=== PATIENT | female | born 1960 | race Caucasian/White ===

== ENCOUNTER → 2022-10-24 | Outpatient (CLI) | payer BC ==
--- NOTE | 2022-10-24 10:23 | CTL ---
EXAMINATION TYPE: CT Low Dose Lung DATE OF EXAM ORDERED: 10/24/2022 HISTORY: . Lung cancer screening CT DLP: 2.[address] CTDI: 74.40 mGy Automated exposure control for dose reduction was used. SCREENING VISIT: COMPARISON: TECHNIQUE: Low dose computed tomography scan was performed through the chest at 1 mm thick sections a nd reconstructed images in multiple planes at 1 mm and [address] DIAGNOSTIC QUALITY: Satisfactory FINDINGS: Biapical pleural-based thickening. There is a 3 mm nodular density in the right lung apex axial image 26. There is a subpleural 3 mm nodule axial image 47. There is mild emphysematous changes with subsegmental areas of consolidation more typical of atelecta sis. No diagnostic evidence of pneumonia or pleural effusion. No pneumothorax. Mild hypertrophic and degenerative changes of the spine. Small hypodensities within the liver measuri ng 1 cm are nonspecific by noncontrast technique. Most likely related to simple cysts. Heart size is normal. There is a small hiatal hernia. Aorta of normal caliber. Coronary arteries demo nstrate no significant calcifications. IMPRESSION: 1. COPD with less than 5 mm pulmonary nodules which have a benign appearance. 2. 1 cm indeterminate hepatic lesions by noncontrast technique most likely related to simple cysts co uld be correlated with ultrasound. CT LUNG RAD AND CT CHEST RECOMMENDATION: Lung-Rad 2 Benign Appearance or Behavior: Continue annual sc reening with LDCT in 12 months.
== END | disposition home or self-care (01) ==
LOC: RADCTMAIN 09:26
PROVIDERS: ATTEND Family Medicine
DX: Z12.2 Encounter for screening for malignant neoplasm of respiratory organs (principal); J44.9 Chronic obstructive pulmonary disease, unspecified; R91.8 Other nonspecific abnormal finding of lung field; Z87.891 Personal history of nicotine dependence
CPT/HCPCS: 71271

== ENCOUNTER → 2022-12-22 | Outpatient (CLI) | payer BC ==
--- NOTE | 2022-12-22 18:27 | CA ---
Exercise Stress Test Report Name: Sofy Morrissey Exam Date: 12/22/2022 10:58 Exam Location: [facility] Stress Ht (in): 68 Wt (lb): 160 BSA: 1.86 Ordering Phys: Tyler Quintero MD Referring Phys: Amaury George MD Technologist: Steven Waggoner Age: 62 Gender: F : 1960 Procedure CPT: Indications: R94.31 ICD-10 Codes: Patient History: Medications: LORATIDINE Meds past 24 hrs: Pretest Chest Pain: STRESS TEST Rupert Protocol Exercise Duration (min:sec): 09:[address] Depressions (mm): Angina Score: Pardo Score: Resting HR (bpm): 70 Peak HR (bpm): 137 Resting BP (mmHg): 136 / 89 Peak BP (mmHg): 194 / 74 MPHR: 158 Target HR: 134 % MPHR: 87 METS: 11.8 Total Dose: Peak Dose: Atropine: Double Product: 42439 BP Response: Stress Termination: Reached target heart rate Stress Symptoms: NO SYMPTOMS Stress Summary: ECG ANALYSIS Resting ECG: Stress ECG: CONCLUSIONS Baseline heart rate 67 beats a minute, Baseline blood pressure 136/89 mmHg Baseline 12-lead EKG shows sinus rhythm normal ST segments Patient exercised on a Rupert protocol for 9 minutes 51 seconds achieving a peak heart rate of 136 beats a minute. Peak blood pressure was 194/74 mmHg line she was a sympathetic through the procedure At peak exercise there was a upsloping [address] depression noted that resolved quickly into recovery no arrhythmias noted Impression borderline abnormal stress test with a [address] depression noted at peak exercise without any symptoms and a rapid resolution during recovery Consider exercise stress echo in view of the ECG abnormalities noted on EKG Dr. Jose Ashley MD (Electronically Signed) Final Date: 22 Dec 2022 18:26
== END | disposition home or self-care (01) ==
LOC: RADNMMAIN 10:38
PROVIDERS: ATTEND Family Medicine
DX: I49.1 Atrial premature depolarization (principal); R94.31 Abnormal electrocardiogram [ECG] [EKG]
CPT/HCPCS: 93017

== ENCOUNTER → 2023-01-20 | Outpatient (CLI) | payer BC ==
--- NOTE | 2023-01-20 12:48 | CA ---
Stress Echo Report Sofy Morrissey Age: 62 Gender: F : 1960 Exam Date: 01/20/2023 10:25 Exam Location: [facility] Echo Ht (in): 68 Wt (lb): 160 Ordering Physician: Tyler Quintero MD Referring Physician: Leon JARQUIN Buckle Stapler: Dejah Andrade RDCS Technologist Procedure CPT: Indication: r94.39 ICD-9 Codes: Rhythm: Patient History: Cardiac arrhythmia Cardiac Medications: NONE,,,,, Medications in past 24 hours: Contrast: Stress Results Protocol: Rupert Total dose(mL): Exercise Duration (min:sec): 10:[address] Depression (mm): Angina Score: Pardo Score: METS: 11.9 Resting HR: 83 Resting BP: 126 / 77 Peak HR: 140 Peak BP: 179 / 82 Max Predicted HR: 158 89 % Max Predicted HR Target HR: 134 Double Product: [id number] Stress Summary: The patient's target heart rate was achieved BP Response: Normal Reason for Termination: MAX EXERTION/TARGET HR Cardiac Symptoms: DIFFICULTY IN BREATHING ECG Analysis Resting ECG: Stress ECG: Arrhythmia: Echo Analysis Resting Echo: Peak Echo Analysis: MEASUREMENTS (Male/Female) Normal Values CONCLUSIONS Patient underwent exercise stress echo with a Rupert protocol treadmill stress test. Patient exercised into Stage 3 for a total of 10 minutes and 15 seconds reaching a total of 11.9 METS. Patient's maximum heart rate was 140 which represented 88% age-predicted maximum heart rate. Stress EKG portion: At baseline patient's EKG showed normal sinus rhythm, normal axis, frequent PACs, nonspecific 0.[address] depressions in the inferior and lateral leads. At peak exercise, EKG showed mild accentuation baseline EKG abnormalities. Stress echo portion: 2-D echocardiogram was performed in the parasternal long, personal short, apical 2 and apical four-chamber views at rest, peak exercise and in recovery. At baseline, echocardiogram showed left ventricular ejection fraction 50% without wall motion abnormalities. With peak exercise, echocardiogram shows improvement in left ventricular ejection fraction, increase contractility, decrease in left ventricular end systolic dimension without wall motion abnormalities consistent with a normal response to exercise. Conclusions: 1. Normal stress echo response to exercise without evidence of inducible ischemia. 2. Nonspecific stress EKG portion second baseline EKG abnormalities 3. Good exercise capacity. 4. Low normal left ventricular ejection fraction 50% Dr. Celestino Denton DO (Electronically Signed) Final Date: 20 January 2023 12:47
== END | disposition home or self-care (01) ==
LOC: RADNMMAIN 09:51
PROVIDERS: ATTEND Family Medicine
DX: R94.39 Abnormal result of other cardiovascular function study (principal); R94.31 Abnormal electrocardiogram [ECG] [EKG]
CPT/HCPCS: 93351

== ENCOUNTER → 2023-10-15 | Outpatient (CLI) | payer BC ==
--- NOTE | 2023-10-18 18:01 | MM ---
Reason for Exam: Screening (asymptomatic). Last mammogram was performed 1 year(s) and 1 month(s) ago. Patient History: Menarche at age 12. First Full-Term at age 18. Postmenopausal. Patient has history of breast feeding. Hormonal Contraceptives for 17 years from age 18 until age 35. Benign Excisional Biopsy on the left side. Maternal cousin had breast cancer, age 58. Maternal cousin had breast cancer, age 38. Sister had breast cancer under age 50. Mother had breast cancer, age 68. Risk Values: Raul 5 year model risk: 8.5%. NCI Lifetime model risk: 33.1%. Prior Study Comparison: 01/10/2010 Bilateral Diagnostic Mammogram, [facility]. 09/29/2011 Bilateral Diagnostic Mammogram, [facility]. 02/24/2014 Bilateral Screening Mammogram, [facility]. 09/09/2022 Bilateral MG 3D screening mammo w/cad, [facility]. Tissue Density: There are scattered areas of fibroglandular density. Findings: Analyzed By CAD. There is no suspicious group of microcalcifications or new suspicious mass in either breast. Overall Assessment: Negative, BI-RAD 1 Management: Screening Mammogram of both breasts in 1 year. SEE NOTE BELOW IN REGARDS TO PATIENT'S INCREASED 5 YEAR RAUL SCORE AND INCREASED LIFETIME RISK SCORE. Patient should continue monthly self-breast exams. A clinical breast exam by your physician is recommended on an annual basis. This exam should not preclude additional follow-up of suspicious palpable abnormalities. Note on Raul scores and lifetime risk: 1. A Raul score greater than 3% is considered moderate risk. If this is the case, consider specialist referral to assess eligibility for a risk reducing agent. 2. If overall lifetime risk for the development of breast cancer is 20% or higher, the patient may qualify for future screening with alternating mammogram and breast MRI. Electronically signed and approved by: Mandi Juarez M.D. Radiologist
== END | disposition home or self-care (01) ==
LOC: RADMAMWWP 08:23
PROVIDERS: ATTEND Family Medicine
DX: Z12.31 Encounter for screening mammogram for malignant neoplasm of breast (principal); Z78.0 Asymptomatic menopausal state; Z80.3 Family history of malignant neoplasm of breast
CPT/HCPCS: 77063; 77067

== ENCOUNTER → 2024-11-23 | Outpatient (CLI) | payer BC ==
--- NOTE | 2024-11-23 11:32 | MM ---
Reason for Exam: Screening (asymptomatic). Last mammogram was performed 1 year(s) and 1 month(s) ago. Patient History: Menarche at age 12. First Full-Term at age 18. Postmenopausal. Patient has history of breast feeding. Hormonal Contraceptives for 17 years from age 18 until age 35. Benign Excisional Biopsy on the left side. Maternal cousin had breast cancer, age 58. Maternal cousin had breast cancer, age 38. Sister had breast cancer under age 50. Mother had breast cancer, age 68. Risk Values: Bettye 5 year model risk: 9.0%. NCI Lifetime model risk: 31.4%. Prior Study Comparison: 02/24/2014 Bilateral Screening Mammogram, [facility]. 09/09/2022 Bilateral MG 3D screening mammo w/cad, [facility]. 10/15/2023 Bilateral MG 3D screening mammo w/cad, [facility]. Tissue Density: There are scattered areas of fibroglandular density. Findings: Analyzed By CAD. There is no suspicious group of microcalcifications or new suspicious mass in either breast. Overall Assessment: Negative, BI-RAD 1 Management: Screening Mammogram of both breasts in 1 year. . Patient should continue monthly self-breast exams. A clinical breast exam by your physician is recommended on an annual basis. This exam should not preclude additional follow-up of suspicious palpable abnormalities. Note on Bettye scores and lifetime risk: 1. A Bettye score greater than 3% is considered moderate risk. If this is the case, consider specialist referral to assess eligibility for a risk reducing agent. 2. If overall lifetime risk for the development of breast cancer is 20% or higher, the patient may qualify for future screening with alternating mammogram and breast MRI. [facility], , 11/23/2024 11:29 AM. Electronically signed and approved by: Branden Guzman M.D. Radiologis
== END | disposition home or self-care (01) ==
LOC: RADMAMWWP 11:09
PROVIDERS: ATTEND Family Medicine
DX: Z12.31 Encounter for screening mammogram for malignant neoplasm of breast (principal); R92.323 Mammographic fibroglandular density, bilateral breasts; Z78.0 Asymptomatic menopausal state; Z80.3 Family history of malignant neoplasm of breast
CPT/HCPCS: 77063; 77067